=== PATIENT | female | born 1970 | race Caucasian/White ===

== ENCOUNTER 2017-05-21 12:43 | Emergency (ER) | payer MEDICARE, MEDICAID ==
[~2017-05-21] VITALS: Ht 149.8 cm; Wt 95.7 kg
[~2017-05-21 12:43] MED LIST: ALBUTEROL0.09 MG/A2 IH; AMOXICILLIN500 M2 PO; AMOXICILLIN500 MG PO; ANAPROX DS550 MG PO; AUGMENTIN 875-875 MG PO; BACTRIM DS 8001 TA1 PO; CIPRO500 MG PO; CIPROFLOXACIN500 MG PO; CORTISPORIN SUS10 ML OT; CYCLOBENZAPRINE10 MG PO; DIFLUCAN150 MG PO; DILANTIN PO; DILANTIN100 MG PO; DILANTIN50 MG PO; FLEXERIL10 MG PO; FLONASE 0.05% 121 EA NAS; HYDROCODONE BIT1 T11 PO; MEDROL DOSEPAK4 MG PO; MOTRIN800 MG PO; MULTIPLE VITAMI1 TAB PO; NAPROSYN500 MG PO; PREDNICOT20 MG PO; PREDNISONE20 M1 PO; PRILOSEC20 MG PO; PROVENTIL0.09 MG/AC IH; ROBITUSSIN DM 105 ML PO; TESSALON PERLE100 M1 PO; VICODIN 5/500 505 MG PO; VITAMINS FOR HA1 CAP PO; ZITHROMAX Z PA250 MG PO; ZYRTEC10 MG PO
[2017-05-21] MEDS ORDERED: VIBRAMYCIN100 MG PO (15:14)
== END 2017-05-21 15:38 | disposition home or self-care (01) ==
LOC: ED 12:43
DX: J40 Bronchitis, not specified as acute or chronic (principal)

== ENCOUNTER → 2017-05-25 | Emergency (ER) | payer MEDICARE, MEDICAID ==
[~2017-05-25] VITALS: Wt 95.7 kg
[~2017-05-25] MED LIST changes: +VIBRAMYCIN100 MG PO
[2017-05-25 21:58] LABS: BASO % 0.5 % (0.0-1.0); EOS # 0.1 10*3/uL (0.0-0.4); EOS % 1.1 % (1.0-4.0); HEMATOCRIT 40.2 % (37.0-47.0); HEMOGLOBIN 13.8 g/dl (12.0-16.0); LYMPH # 2.3 10*3/uL (1.3-4.4); LYMPH % 35.1 % (27.0-41.0); MEAN CELL VOLUME 87.4 fl (81.0-99.0); MEAN CORPUSCULAR HGB CONC 34.3 g/dl (33.0-37.0); MEAN PLATELET VOLUME 9.1 fl (9.6-12.3); MONO # 0.4 10*3/uL (0.1-1.0); MONO % 6.3 % (3.0-9.0); NEUT # 3.7 10*3/uL (2.3-7.9); NEUT % 56.2 % (47.0-73.0); PLATELET COUNT AUTOMATED 246 10*3/uL (130-400); RED CELL DISTRI WIDTH 12.8 % (0-14.5); WHITE BLOOD COUNT 6.6 10*3/uL (4.8-10.8)
[2017-05-25 22:14] LABS: ALBUMIN 3.8 gm/dl (3.1-4.5); ALKALINE PHOSPHATASE 81 U/L (45-117); BUN 16 mg/dl (7-24); CHLORIDE 104 mmol/L (98-107); CREATININE 0.73 mg/dL (0.55-1.02); POTASSIUM 3.9 mmol/L (3.5-5.1); SGOT/AST 16 IU/L (3-35); SGPT/ALT 27 U/L (12-78); SODIUM 139 mmol/L (136-145); TOTAL PROTEIN 7.4 gm/dL (6.4-8.2)
== END ==
LOC: ED 21:13
PROVIDERS: Nurse Practitioner Family
DX: G43.909 Migraine, unspecified, not intractable, without status migrainosus (principal); G40.909 Epilepsy, unspecified, not intractable, without status epilepticus; Z79.899 Other long term (current) drug therapy

== ENCOUNTER 2017-07-08 12:35 | Emergency (ER) | payer MEDICARE, MEDICAID ==
[~2017-07-08] VITALS: Ht 152.4 cm; Wt 97.1 kg
[2017-07-08] MEDS ORDERED: NAPROSYN500 MG PO (12:57)
== END 2017-07-08 14:43 | disposition home or self-care (01) ==
LOC: ED 12:35
DX: S50.02XA Contusion of left elbow, initial encounter (principal); S60.222A Contusion of left hand, initial encounter; S60.212A Contusion of left wrist, initial encounter; R03.0 Elevated blood-pressure reading, without diagnosis of hypertension; Z79.899 Other long term (current) drug therapy; W10.9XXA Fall (on) (from) unspecified stairs and steps, initial encounter; Y93.89 Activity, other specified; Y92.009 Unspecified place in unspecified non-institutional (private) residence as the place of occurrence of the external cause; Y99.8 Other external cause status

== ENCOUNTER 2017-10-04 10:23 | Emergency (ER) | payer MEDICARE, MEDICAID ==
[~2017-10-04] VITALS: Ht 149.8 cm; Wt 97.1 kg
[2017-10-04] MEDS ORDERED: PREDNISONE20 M1 PO (12:01)
[2017-10-04] MEDS ORDERED: ROBITUSSIN DM 105 ML PO (12:01)
[2017-10-04] MEDS ORDERED: AMOXICILLIN500 M2 PO (12:01)
== END 2017-10-04 12:14 | disposition home or self-care (01) ==
LOC: ED 10:23
DX: J20.9 Acute bronchitis, unspecified (principal); Z79.899 Other long term (current) drug therapy

== ENCOUNTER 2018-02-16 10:56 | Emergency (ER) | payer MEDICARE, MEDICAID ==
[~2018-02-16] VITALS: Ht 147.3 cm; Wt 100.7 kg
[2018-02-16] MEDS ORDERED: NAPROSYN500 MG PO (12:29)
[2018-02-16] MEDS ORDERED: CYCLOBENZAPRINE10 MG PO (12:29)
== END 2018-02-16 12:47 | disposition home or self-care (01) ==
LOC: ED 10:56
DX: S46.912A Strain of unspecified muscle, fascia and tendon at shoulder and upper arm level, left arm, initial encounter (principal); Z79.899 Other long term (current) drug therapy; X58.XXXA Exposure to other specified factors, initial encounter; Y93.89 Activity, other specified; Y92.89 Other specified places as the place of occurrence of the external cause; Y99.8 Other external cause status

== ENCOUNTER 2018-04-23 12:31 | Emergency (ER) | payer MEDICARE, MEDICAID ==
[~2018-04-23] VITALS: Ht 147.3 cm; Wt 94.8 kg
[2018-04-23] MEDS ORDERED: NAPROSYN500 MG PO (12:41)
== END 2018-04-23 13:57 | disposition home or self-care (01) ==
LOC: ED 12:31
DX: S93.622A Sprain of tarsometatarsal ligament of left foot, initial encounter (principal); R03.0 Elevated blood-pressure reading, without diagnosis of hypertension; X58.XXXA Exposure to other specified factors, initial encounter; Y93.89 Activity, other specified; Y92.89 Other specified places as the place of occurrence of the external cause; Y99.8 Other external cause status; Z79.899 Other long term (current) drug therapy

== ENCOUNTER → 2018-05-04 | Outpatient (CLI) | payer MEDICARE, MEDICAID ==
[~2018-05-04] MED LIST changes: +AVPAK AZITHROM250 M1 PO; +CLARITIN10 MG PO; +FLONASE ALLERG9.9 ML NAS; +PREDNISONE10 MG PO; +PROAIR HFA8.5 GM INH
== END | disposition home or self-care (01) ==
LOC: US 11:23
DX: R92.2 Inconclusive mammogram (principal)

== ENCOUNTER 2018-06-05 09:56 | Emergency (ER) | payer MEDICARE, MEDICAID ==
[~2018-06-05] VITALS: Ht 147.3 cm; Wt 94.8 kg
[~2018-06-05 09:56] MED LIST changes: -AVPAK AZITHROM250 M1 PO; -CLARITIN10 MG PO; -FLONASE ALLERG9.9 ML NAS; -PREDNISONE10 MG PO; -PROAIR HFA8.5 GM INH
[2018-06-05] MEDS ORDERED: PROAIR HFA8.5 GM INH (10:06)
[2018-06-05] MEDS ORDERED: PREDNISONE10 MG PO (10:06)
[2018-06-05] MEDS ORDERED: FLONASE ALLERG9.9 ML NAS (10:08)
[2018-06-05] MEDS ORDERED: CLARITIN10 MG PO (10:08)
[2018-06-05] MEDS ORDERED: AVPAK AZITHROM250 M1 PO (10:58)
== END 2018-06-05 11:24 | disposition home or self-care (01) ==
LOC: ED 09:56
DX: J20.9 Acute bronchitis, unspecified (principal); R03.0 Elevated blood-pressure reading, without diagnosis of hypertension; Z79.899 Other long term (current) drug therapy; Z79.2 Long term (current) use of antibiotics

== ENCOUNTER 2018-08-14 11:19 | Emergency (ER) | payer MEDICARE, MEDICAID ==
[~2018-08-14] VITALS: Wt 95.3 kg
[~2018-08-14 11:19] MED LIST changes: +AVPAK AZITHROM250 M1 PO; +CLARITIN10 MG PO; +FLONASE ALLERG9.9 ML NAS; +PREDNISONE10 MG PO; +PROAIR HFA8.5 GM INH
[2018-08-14] MEDS ORDERED: OMNICEF300 MG PO (11:30)
[2018-08-14] MEDS ORDERED: FLONASE ALLERG9.9 ML NAS (11:30)
[2018-08-14] MEDS ORDERED: CLARITIN10 MG PO (11:30)
[2018-08-14] MEDS ORDERED: PREDNISONE10 MG PO (11:30)
== END 2018-08-14 11:34 | disposition home or self-care (01) ==
LOC: ED 11:19
DX: H66.92 Otitis media, unspecified, left ear (principal); R03.0 Elevated blood-pressure reading, without diagnosis of hypertension; R09.81 Nasal congestion; J02.9 Acute pharyngitis, unspecified; Z79.899 Other long term (current) drug therapy

== ENCOUNTER 2018-08-24 10:50 | Emergency (ER) | payer MEDICARE, MEDICAID ==
[~2018-08-24] VITALS: Ht 147.3 cm; Wt 99.3 kg
[~2018-08-24 10:50] MED LIST changes: +OMNICEF300 MG PO
[2018-08-24] MEDS ORDERED: CIPRODEX 0.3%-7.5 ML OT (11:23)
== END 2018-08-24 11:26 | disposition home or self-care (01) ==
LOC: ED 10:50
DX: H60.92 Unspecified otitis externa, left ear (principal); Z79.2 Long term (current) use of antibiotics; Z79.899 Other long term (current) drug therapy

== ENCOUNTER 2018-11-09 08:55 | Emergency (ER) | payer MEDICARE, MEDICAID ==
[~2018-11-09] VITALS: Ht 177.8 cm; Wt 99.3 kg
[~2018-11-09 08:55] MED LIST changes: +CIPRODEX 0.3%-7.5 ML OT
[2018-11-09] MEDS ORDERED: PREDNISONE20 M1 PO (11:19)
== END 2018-11-09 11:21 | disposition home or self-care (01) ==
LOC: ED 08:55
DX: S46.911A Strain of unspecified muscle, fascia and tendon at shoulder and upper arm level, right arm, initial encounter (principal); Z79.899 Other long term (current) drug therapy; X58.XXXA Exposure to other specified factors, initial encounter; Y93.89 Activity, other specified; Y92.89 Other specified places as the place of occurrence of the external cause; Y99.8 Other external cause status

== ENCOUNTER 2019-02-08 14:12 | Emergency (ER) | payer MEDICARE, MEDICAID ==
[~2019-02-08] VITALS: Wt 101.2 kg
[2019-02-08] MEDS ORDERED: FLONASE ALLERG9.9 ML NAS (14:29)
[2019-02-08] MEDS ORDERED: ZYRTEC10 MG PO (14:29)
[2019-02-08] MEDS ORDERED: AUGMENTIN 875875 MG PO (14:29)
== END 2019-02-08 14:40 | disposition home or self-care (01) ==
LOC: ED 14:12
DX: J32.9 Chronic sinusitis, unspecified (principal); J02.9 Acute pharyngitis, unspecified; R05 Cough; Z79.899 Other long term (current) drug therapy

== ENCOUNTER → 2020-02-13 | Outpatient (CLI) | payer MEDICARE, MEDICAID ==
[~2020-02-13] MED LIST changes: +AUGMENTIN 875875 MG PO
[2020-02-13 11:35] LABS: BASO % 0.4 % (0.0-1.0); EOS % 0.6 % (1.0-4.0); HEMATOCRIT 39.6 % (37.0-47.0); LYMPH # 1.7 10*3/uL (1.3-4.4); LYMPH % 35.6 % (27.0-41.0); MEAN CELL VOLUME 88.4 fl (81.0-99.0); MEAN CORPUSCULAR HGB 29.5 pg (27.0-31.0); MEAN CORPUSCULAR HGB CONC 33.3 g/dl (33.0-37.0); MEAN PLATELET VOLUME 9.4 fl (9.6-12.3); MONO # 0.4 10*3/uL (0.1-1.0); MONO % 7.9 % (3.0-9.0); NEUT # 2.6 10*3/uL (2.3-7.9); NEUT % 55.3 % (47.0-73.0); PLATELET COUNT AUTOMATED 245 10*3/uL (130-400); RED BLOOD COUNT 4.48 10*6/uL (4.10-5.10); RED CELL DISTRI WIDTH 13.1 % (0-14.5); WHITE BLOOD COUNT 4.8 10*3/uL (4.8-10.8)
[2020-02-13 12:07] LABS: ALBUMIN 3.9 gm/dl (3.1-4.5); ALKALINE PHOSPHATASE 72 U/L (45-117); BILIRUBIN, DIRECT < 0.1 mg/dL (0.0-0.2); BUN 20 mg/dl (7-24); CHLORIDE 106 mmol/L (98-107); CREATININE 0.73 mg/dL (0.55-1.02); POTASSIUM 4.1 mmol/L (3.5-5.1); SGOT/AST 17 IU/L (3-35); SGPT/ALT 38 U/L (12-78); SODIUM 138 mmol/L (136-145); TOTAL PROTEIN 6.9 gm/dL (6.4-8.2)
== END | disposition home or self-care (01) ==
LOC: LAB 11:18
PROVIDERS: Internal Medicine
DX: R56.9 Unspecified convulsions (principal)

== ENCOUNTER 2020-07-06 12:32 | Emergency (ER) | payer MEDICARE, MEDICAID ==
[~2020-07-06] VITALS: Ht 152.4 cm; Wt 101.2 kg
== END 2020-07-06 14:13 | disposition home or self-care (01) ==
LOC: ED 12:32
DX: S66.912A Strain of unspecified muscle, fascia and tendon at wrist and hand level, left hand, initial encounter (principal); Z79.899 Other long term (current) drug therapy; X58.XXXA Exposure to other specified factors, initial encounter; Y93.89 Activity, other specified; Y92.89 Other specified places as the place of occurrence of the external cause; Y99.8 Other external cause status

== ENCOUNTER 2020-10-19 20:55 | Emergency (ER) | payer MEDICARE, MEDICAID ==
[~2020-10-19] VITALS: Ht 152.4 cm; Wt 103.9 kg
[2020-10-19 21:45] LABS: BASO % 0.5 % (0.0-1.0); EOS % 0.6 % (1.0-4.0); HEMATOCRIT 39.4 % (37.0-47.0); LYMPH # 1.8 10*3/uL (1.3-4.4); LYMPH % 27.6 % (27.0-41.0); MEAN CELL VOLUME 87.6 fl (81.0-99.0); MEAN CORPUSCULAR HGB 29.6 pg (27.0-31.0); MEAN CORPUSCULAR HGB CONC 33.8 g/dl (33.0-37.0); MEAN PLATELET VOLUME 9.6 fl (9.6-12.3); MONO # 0.5 10*3/uL (0.1-1.0); MONO % 7.7 % (3.0-9.0); NEUT % 63.4 % (47.0-73.0); PLATELET COUNT AUTOMATED 265 10*3/uL (130-400); RED CELL DISTRI WIDTH 13.2 % (0-14.5); WHITE BLOOD COUNT 6.4 10*3/uL (4.8-10.8)
[2020-10-19 22:02] LABS: ALBUMIN 3.5 gm/dl (3.1-4.5); ALKALINE PHOSPHATASE 75 U/L (45-117); BUN 22 mg/dl (7-24); CHLORIDE 108 mmol/L (98-107); CREATININE 0.72 mg/dL (0.55-1.02); POTASSIUM 3.8 mmol/L (3.5-5.1); SGOT/AST 9 IU/L (3-35); SGPT/ALT 30 U/L (12-78); SODIUM 141 mmol/L (136-145)
== END 2020-10-19 23:02 | disposition home or self-care (01) ==
LOC: ED 20:55
PROVIDERS: Emergency Medicine
DX: R19.7 Diarrhea, unspecified (principal); R06.89 Other abnormalities of breathing; G43.909 Migraine, unspecified, not intractable, without status migrainosus; Z20.822 Contact with and (suspected) exposure to COVID-19; Z79.899 Other long term (current) drug therapy; Z86.73 Personal history of transient ischemic attack (TIA), and cerebral infarction without residual deficits; Z87.891 Personal history of nicotine dependence

== ENCOUNTER 2020-10-26 17:41 | Emergency (ER) | payer MEDICARE, MEDICAID ==
[~2020-10-26] VITALS: Ht 152.4 cm; Wt 100.2 kg
== END 2020-10-26 19:09 | disposition home or self-care (01) ==
LOC: ED 17:41
DX: S92.351A Displaced fracture of fifth metatarsal bone, right foot, initial encounter for closed fracture (principal); G40.909 Epilepsy, unspecified, not intractable, without status epilepticus; G43.909 Migraine, unspecified, not intractable, without status migrainosus; Z86.73 Personal history of transient ischemic attack (TIA), and cerebral infarction without residual deficits; Z79.899 Other long term (current) drug therapy; Z87.891 Personal history of nicotine dependence; W18.09XA Striking against other object with subsequent fall, initial encounter; Y93.89 Activity, other specified; Y92.89 Other specified places as the place of occurrence of the external cause; Y99.8 Other external cause status

== ENCOUNTER 2020-12-31 18:05 | Inpatient (IN) | payer MEDICARE, MEDICAID ==
[~2020-12-31] VITALS: Ht 152.4 cm; Wt 99.3 kg
[2020-12-31 18:17] VITALS: BP 155/62
[2020-12-31 18:37] LABS: BASO % 0.2 % (0.0-1.0); EOS % 0.8 % (1.0-4.0); HEMATOCRIT 40.6 % (37.0-47.0); LYMPH # 1.4 10*3/uL (1.3-4.4); LYMPH % 29.1 % (27.0-41.0); MEAN CELL VOLUME 89.4 fl (81.0-99.0); MEAN CORPUSCULAR HGB 30.2 pg (27.0-31.0); MEAN CORPUSCULAR HGB CONC 33.7 g/dl (33.0-37.0); MEAN PLATELET VOLUME 9.3 fl (9.6-12.3); MONO # 0.3 10*3/uL (0.1-1.0); MONO % 6.3 % (3.0-9.0); NEUT % 63.4 % (47.0-73.0); PLATELET COUNT AUTOMATED 219 10*3/uL (130-400); RED BLOOD COUNT 4.54 10*6/uL (4.10-5.10); WHITE BLOOD COUNT 4.8 10*3/uL (4.8-10.8)
[2020-12-31 18:45] VITALS: BP 160/74
[2020-12-31 18:51] LABS: ACT PARTIAL THROMBO TIME 28.2 SECONDS (20.0-32.1)
[2020-12-31 18:57] LABS: ALBUMIN 3.4 gm/dl (3.1-4.5); ALKALINE PHOSPHATASE 91 U/L (45-117); BUN 13 mg/dl (7-24); CHLORIDE 112 mmol/L (98-107); CREATININE 0.67 mg/dL (0.55-1.02); POTASSIUM 3.6 mmol/L (3.5-5.1); SGOT/AST 14 IU/L (3-35); SGPT/ALT 59 U/L (12-78); SODIUM 142 mmol/L (136-145); TOTAL PROTEIN 6.8 gm/dL (6.4-8.2)
[2020-12-31 19:00] LABS: TROPONIN I < 0.015 ng/ml (<0.045)
[2020-12-31 19:33] VITALS: BP 163/74
[2020-12-31 19:55] VITALS: BP 159/71
[2020-12-31 20:35] VITALS: BP 180/92
[2020-12-31] MEDS ORDERED: ALLERGY RELIEF10 M2 PO (20:48)
[2020-12-31] MEDS ORDERED: LOSARTAN POTASS25 M1 PO (20:48)
[2020-12-31 22:00] VITALS: BP 158/88
[2021-01-01] VITALS: BP 152/74
[2021-01-01 05:56] LABS: BASO % 0.4 % (0.0-1.0); EOS # 0.1 10*3/uL (0.0-0.4); EOS % 1.5 % (1.0-4.0); HEMATOCRIT 39.6 % (37.0-47.0); LYMPH # 1.9 10*3/uL (1.3-4.4); LYMPH % 41.4 % (27.0-41.0); MEAN CELL VOLUME 90.4 fl (81.0-99.0); MEAN CORPUSCULAR HGB 30.1 pg (27.0-31.0); MEAN CORPUSCULAR HGB CONC 33.3 g/dl (33.0-37.0); MEAN PLATELET VOLUME 9.2 fl (9.6-12.3); MONO # 0.3 10*3/uL (0.1-1.0); MONO % 7.3 % (3.0-9.0); NEUT # 2.2 10*3/uL (2.3-7.9); NEUT % 49.2 % (47.0-73.0); PLATELET COUNT AUTOMATED 202 10*3/uL (130-400); RED BLOOD COUNT 4.38 10*6/uL (4.10-5.10); RED CELL DISTRI WIDTH 13.1 % (0-14.5); WHITE BLOOD COUNT 4.5 10*3/uL (4.8-10.8)
[2021-01-01 06:22] LABS: ACT PARTIAL THROMBO TIME 27.7 SECONDS (20.0-32.1)
[2021-01-01 06:28] LABS: BUN 14 mg/dl (7-24); CHLORIDE 112 mmol/L (98-107); CHOLESTEROL 193 mg/dL (<200); CREATININE 0.72 mg/dL (0.55-1.02); POTASSIUM 3.6 mmol/L (3.5-5.1); SODIUM 144 mmol/L (136-145); TRIGLYCERIDES 204 mg/dl (<150)
[2021-01-01 06:29] LABS: LDL CHOLESTEROL 105 mg/dL (9-159)
[2021-01-01 06:41] LABS: VITAMIN D, 25-HYDROXY 35.2 ng/mL (30-100)
[2021-01-01 12:00] VITALS: BP 123/58
== END 2021-01-01 17:26 | disposition home or self-care (01) | DRG 392 ==
LOC: ED 18:05 → EDHOLD 19:04 → 5E 19:04
PROVIDERS: Emergency Medicine; Hospitalist; ADMIT Internal Medicine; ATTEND Internal Medicine
DX: K21.9 Gastro-esophageal reflux disease without esophagitis (principal); I16.1 Hypertensive emergency; Z68.41 Body mass index [BMI] 40.0-44.9, adult; R73.9 Hyperglycemia, unspecified; G40.909 Epilepsy, unspecified, not intractable, without status epilepticus; E83.41 Hypermagnesemia; E78.1 Pure hyperglyceridemia; R00.2 Palpitations; E66.01 Morbid (severe) obesity due to excess calories; I11.9 Hypertensive heart disease without heart failure; Z87.891 Personal history of nicotine dependence; Z82.5 Family history of asthma and other chronic lower respiratory diseases; Z82.49 Family history of ischemic heart disease and other diseases of the circulatory system; Z79.899 Other long term (current) drug therapy

== ENCOUNTER 2021-07-05 11:40 | Emergency (ER) | payer MEDICARE, MEDICAID ==
[~2021-07-05] VITALS: Ht 147.3 cm; Wt 101.2 kg
[~2021-07-05 11:40] MED LIST changes: +ALLERGY RELIEF10 M2 PO; +LOSARTAN POTASS25 M1 PO
[2021-07-05] MEDS ORDERED: MULTIVITAMINS1 EAC1 PO (11:59)
[2021-07-05 12:55] LABS: BASO % 0.3 % (0.0-1.0); EOS # 0.1 10*3/uL (0.0-0.4); EOS % 0.8 % (1.0-4.0); HEMATOCRIT 38.3 % (37.0-47.0); LYMPH # 1.5 10*3/uL (1.3-4.4); LYMPH % 25.4 % (27.0-41.0); MEAN CELL VOLUME 89.5 fl (81.0-99.0); MEAN CORPUSCULAR HGB 29.4 pg (27.0-31.0); MEAN CORPUSCULAR HGB CONC 32.9 g/dl (33.0-37.0); MEAN PLATELET VOLUME 9.4 fl (9.6-12.3); MONO # 0.4 10*3/uL (0.1-1.0); MONO % 7.2 % (3.0-9.0); NEUT # 3.9 10*3/uL (2.3-7.9); PLATELET COUNT AUTOMATED 230 10*3/uL (130-400); RED BLOOD COUNT 4.28 10*6/uL (4.10-5.10); RED CELL DISTRI WIDTH 13.6 % (0-14.5); WHITE BLOOD COUNT 5.9 10*3/uL (4.8-10.8)
[2021-07-05 13:16] LABS: ALBUMIN 3.5 gm/dl (3.1-4.5); ALKALINE PHOSPHATASE 80 U/L (45-117); BUN 18 mg/dl (7-24); CHLORIDE 108 mmol/L (98-107); CREATININE 0.76 mg/dL (0.55-1.02); POTASSIUM 3.6 mmol/L (3.5-5.1); SGOT/AST 17 IU/L (3-35); SGPT/ALT 34 U/L (12-78); SODIUM 141 mmol/L (136-145); TOTAL PROTEIN 6.9 gm/dL (6.4-8.2)
[2021-07-05 13:21] LABS: TROPONIN I < 0.015 ng/ml (<0.045)
[2021-07-05] MEDS ORDERED: FLONASE ALLERG9.9 ML NAS (14:18)
[2021-07-05] MEDS ORDERED: BENZONATATE100 M1 PO (14:18)
== END 2021-07-05 14:22 | disposition home or self-care (01) ==
LOC: ED 11:40
PROVIDERS: Emergency Medicine
DX: J32.9 Chronic sinusitis, unspecified (principal); I10 Essential (primary) hypertension; Z79.899 Other long term (current) drug therapy; Z87.891 Personal history of nicotine dependence

== ENCOUNTER 2021-11-17 10:26 | Emergency (ER) | payer MEDICARE, MEDICAID ==
[~2021-11-17] VITALS: Ht 152.4 cm; Wt 103.9 kg
[~2021-11-17 10:26] MED LIST changes: +BENZONATATE100 M1 PO; +MULTIVITAMINS1 EAC1 PO
[2021-11-17] MEDS ORDERED: AUGMENTIN 875-875 MG PO (11:19)
[2021-11-17] MEDS ORDERED: PREDNISONE20 M1 PO (11:19)
== END 2021-11-17 11:38 | disposition home or self-care (01) ==
LOC: ED 10:26
DX: S61.254A Open bite of right ring finger without damage to nail, initial encounter (principal); R05.9 Cough, unspecified; Z79.899 Other long term (current) drug therapy; Z87.891 Personal history of nicotine dependence; W54.0XXA Bitten by dog, initial encounter; Y93.89 Activity, other specified; Y92.89 Other specified places as the place of occurrence of the external cause; Y99.8 Other external cause status

== ENCOUNTER 2022-09-28 15:59 | Emergency (ER) | payer MEDICARE, MEDICAID ==
[~2022-09-28] VITALS: Ht 152.4 cm; Wt 103.9 kg
[2022-09-28 16:50] LABS: BILIRUBIN Negative (Negative); BLOOD Negative (Negative); CLARITY Clear (Clear); COLOR Yellow (Yellow); GLUCOSE Negative (Negative); KETONE Negative (Negative); LEUKO ESTERASE Negative (Negative); NITRITE Negative (Negative); PH 5.5 (4.5-8.0); UROBILINOGEN 0.2 E.U./dl (0.0-1.0)
[2022-09-28 17:27] LABS: BACTERIA TRACE; EPITHELIAL CELLS 21-30; WBC 0-2 wbc/hpf (0-5)
[2022-09-28] MEDS ORDERED: CEFDINIR300 MG PO (17:33)
== END 2022-09-28 17:49 | disposition home or self-care (01) ==
LOC: ED 15:59
PROVIDERS: Physician Assistant
DX: S66.912A Strain of unspecified muscle, fascia and tendon at wrist and hand level, left hand, initial encounter (principal); H66.93 Otitis media, unspecified, bilateral; R35.0 Frequency of micturition; Z98.890 Other specified postprocedural states; Z87.891 Personal history of nicotine dependence; W19.XXXA Unspecified fall, initial encounter; Y93.89 Activity, other specified; Y92.89 Other specified places as the place of occurrence of the external cause; Y99.8 Other external cause status

== ENCOUNTER 2022-10-31 15:31 | Emergency (ER) | payer MEDICARE, MEDICAID ==
[~2022-10-31] VITALS: Ht 152.4 cm; Wt 106.6 kg
[~2022-10-31 15:31] MED LIST changes: +CEFDINIR300 MG PO
[2022-10-31 16:21] LABS: BASO % 0.4 % (0.0-1.0); EOS # 0.1 10*3/uL (0.0-0.4); EOS % 2.1 % (1.0-4.0); HEMATOCRIT 40.9 % (37.0-47.0); LYMPH # 1.4 10*3/uL (1.3-4.4); LYMPH % 28.6 % (27.0-41.0); MEAN CELL VOLUME 88.7 fl (81.0-99.0); MEAN CORPUSCULAR HGB 29.1 pg (27.0-31.0); MEAN CORPUSCULAR HGB CONC 32.8 g/dl (33.0-37.0); MEAN PLATELET VOLUME 9.3 fl (9.6-12.3); MONO # 0.4 10*3/uL (0.1-1.0); MONO % 7.4 % (3.0-9.0); NEUT % 61.1 % (47.0-73.0); PLATELET COUNT AUTOMATED 227 10*3/uL (130-400); RED BLOOD COUNT 4.61 10*6/uL (4.10-5.10); RED CELL DISTRI WIDTH 13.2 % (0-14.5); WHITE BLOOD COUNT 4.9 10*3/uL (4.8-10.8)
[2022-10-31 16:36] LABS: ALKALINE PHOSPHATASE 81 U/L (46-116); BUN 15 mg/dl (9-23); CHLORIDE 108 mmol/L (98-107); LIPASE 37 U/L (12-53); SGPT/ALT 46 U/L (10-49); TOTAL PROTEIN 6.6 gm/dL (6.0-8.0)
[2022-10-31 16:39] LABS: ACT PARTIAL THROMBO TIME 28.9 SECONDS (20.0-32.1)
== END 2022-11-01 00:02 | disposition home or self-care (01) ==
LOC: ED 15:31
PROVIDERS: Emergency Medicine
DX: R00.2 Palpitations (principal); I10 Essential (primary) hypertension; G43.909 Migraine, unspecified, not intractable, without status migrainosus; Z79.899 Other long term (current) drug therapy; Z87.891 Personal history of nicotine dependence

== ENCOUNTER 2022-12-10 09:01 | Emergency (ER) | payer MEDICARE, MEDICAID ==
[~2022-12-10] VITALS: Wt 109.8 kg
[2022-12-10] MEDS ORDERED: ZITHROMAX250 MG PO (09:23)
== END 2022-12-10 09:35 | disposition home or self-care (01) ==
LOC: ED 09:01
DX: J20.9 Acute bronchitis, unspecified (principal); I10 Essential (primary) hypertension; G43.909 Migraine, unspecified, not intractable, without status migrainosus; Z98.890 Other specified postprocedural states; Z87.891 Personal history of nicotine dependence

== ENCOUNTER 2023-03-10 10:46 | Emergency (ER) | payer MEDICARE, MEDICAID ==
[~2023-03-10] VITALS: Wt 108.0 kg
[~2023-03-10 10:46] MED LIST changes: +ZITHROMAX250 MG PO
[2023-03-10] MEDS ORDERED: FEXOFENADINE H180 M1 PO (11:18)
[2023-03-10 11:43] LABS: BASO % 0.4 % (0.0-1.0); EOS # 0.1 10*3/uL (0.0-0.4); EOS % 2.1 % (1.0-4.0); HEMATOCRIT 40.5 % (37.0-47.0); LYMPH # 1.4 10*3/uL (1.3-4.4); MEAN CELL VOLUME 87.7 fl (81.0-99.0); MEAN CORPUSCULAR HGB 29.4 pg (27.0-31.0); MEAN CORPUSCULAR HGB CONC 33.6 g/dl (33.0-37.0); MEAN PLATELET VOLUME 9.6 fl (9.6-12.3); MONO # 0.4 10*3/uL (0.1-1.0); MONO % 6.8 % (3.0-9.0); NEUT # 3.7 10*3/uL (2.3-7.9); NEUT % 65.5 % (47.0-73.0); PLATELET COUNT AUTOMATED 213 10*3/uL (130-400); RED BLOOD COUNT 4.62 10*6/uL (4.10-5.10); RED CELL DISTRI WIDTH 13.3 % (0-14.5); WHITE BLOOD COUNT 5.7 10*3/uL (4.8-10.8)
[2023-03-10 11:56] LABS: ACT PARTIAL THROMBO TIME 30.8 SECONDS (20.0-32.1)
[2023-03-10 12:06] LABS: ALKALINE PHOSPHATASE 79 U/L (46-116); BUN 13 mg/dl (9-23); CHLORIDE 105 mmol/L (98-107); LIPASE 36 U/L (12-53); SGPT/ALT 20 U/L (10-49); TOTAL PROTEIN 6.6 gm/dL (6.0-8.0)
== END 2023-03-10 14:23 | disposition home or self-care (01) ==
LOC: ED 10:46
PROVIDERS: Emergency Medicine
DX: R13.10 Dysphagia, unspecified (principal); J04.0 Acute laryngitis; I10 Essential (primary) hypertension; G43.909 Migraine, unspecified, not intractable, without status migrainosus; Z98.890 Other specified postprocedural states; Z87.891 Personal history of nicotine dependence

== ENCOUNTER → 2023-04-13 | Outpatient (CLI) | payer MEDICARE, MEDICAID ==
[~2023-04-13] MED LIST changes: +FEXOFENADINE H180 M1 PO
[2023-04-13 12:38] LABS: BASO % 0.6 % (0.0-1.0); EOS # 0.2 10*3/uL (0.0-0.4); EOS % 3.4 % (1.0-4.0); HEMATOCRIT 42.7 % (37.0-47.0); LYMPH # 1.6 10*3/uL (1.3-4.4); LYMPH % 31.5 % (27.0-41.0); MEAN CELL VOLUME 89.3 fl (81.0-99.0); MEAN CORPUSCULAR HGB 29.3 pg (27.0-31.0); MEAN CORPUSCULAR HGB CONC 32.8 g/dl (33.0-37.0); MEAN PLATELET VOLUME 9.8 fl (9.6-12.3); MONO # 0.3 10*3/uL (0.1-1.0); MONO % 6.4 % (3.0-9.0); NEUT # 2.9 10*3/uL (2.3-7.9); NEUT % 57.7 % (47.0-73.0); PLATELET COUNT AUTOMATED 224 10*3/uL (130-400); RED BLOOD COUNT 4.78 10*6/uL (4.10-5.10); RED CELL DISTRI WIDTH 13.3 % (0-14.5)
[2023-04-13 13:06] LABS: ALKALINE PHOSPHATASE 76 U/L (46-116); BUN 23 mg/dl (9-23); CHLORIDE 107 mmol/L (98-107); SGPT/ALT 26 U/L (10-49)
== END | disposition home or self-care (01) ==
LOC: LAB 12:12
PROVIDERS: ATTEND Psychiatry & Neurology Neurology
DX: H53.9 Unspecified visual disturbance (principal); R51.9 Headache, unspecified

== ENCOUNTER 2023-07-02 13:11 | Emergency (ER) | payer MEDICARE, MEDICAID ==
[~2023-07-02] VITALS: Ht 152.4 cm; Wt 108.9 kg
[2023-07-02 14:20] LABS: BILIRUBIN Negative (Negative); BLOOD Negative (Negative); CLARITY Clear (Clear); COLOR Yellow (Yellow); GLUCOSE Negative (Negative); KETONE Negative (Negative); LEUKO ESTERASE Negative (Negative); NITRITE Negative (Negative); SPECIFIC GRAVITY 1.025 (1.001-1.030)
[2023-07-02 14:34] LABS: BACTERIA TRACE
[2023-07-02 14:49] LABS: BASO % 0.4 % (0.0-1.0); EOS # 0.1 10*3/uL (0.0-0.4); EOS % 2.6 % (1.0-4.0); HEMATOCRIT 40.5 % (37.0-47.0); LYMPH # 1.6 10*3/uL (1.3-4.4); LYMPH % 35.7 % (27.0-41.0); MEAN CELL VOLUME 88.8 fl (81.0-99.0); MEAN CORPUSCULAR HGB 29.2 pg (27.0-31.0); MEAN CORPUSCULAR HGB CONC 32.8 g/dl (33.0-37.0); MEAN PLATELET VOLUME 9.5 fl (9.6-12.3); MONO # 0.3 10*3/uL (0.1-1.0); MONO % 7.3 % (3.0-9.0); NEUT # 2.4 10*3/uL (2.3-7.9); NEUT % 53.8 % (47.0-73.0); PLATELET COUNT AUTOMATED 219 10*3/uL (130-400); RED BLOOD COUNT 4.56 10*6/uL (4.10-5.10); RED CELL DISTRI WIDTH 13.7 % (0-14.5); WHITE BLOOD COUNT 4.5 10*3/uL (4.8-10.8)
[2023-07-02 15:27] LABS: ALKALINE PHOSPHATASE 81 U/L (46-116); BUN 16 mg/dl (9-23); CHLORIDE 109 mmol/L (98-107); LIPASE 43 U/L (12-53); POTASSIUM 3.8 mmol/L (3.4-5.1); SGPT/ALT 22 U/L (5-49); TOTAL PROTEIN 6.6 gm/dL (6.0-8.0)
[2023-07-02] MEDS ORDERED: AMOX-CLAV 875-1 EACH PO (16:19)
[2023-07-02] MEDS ORDERED: ONDANSETRON4 MG SL (16:19)
== END 2023-07-02 16:27 | disposition home or self-care (01) ==
LOC: ED 13:11
PROVIDERS: Nurse Practitioner Family
DX: R10.12 Left upper quadrant pain (principal); R11.0 Nausea; H66.91 Otitis media, unspecified, right ear; R19.7 Diarrhea, unspecified; I10 Essential (primary) hypertension; R73.9 Hyperglycemia, unspecified; G43.909 Migraine, unspecified, not intractable, without status migrainosus; E78.1 Pure hyperglyceridemia; Z98.890 Other specified postprocedural states; Z87.891 Personal history of nicotine dependence

== ENCOUNTER 2023-07-17 13:44 | Emergency (ER) | payer MEDICARE, MEDICAID ==
[~2023-07-17] VITALS: Ht 152.4 cm; Wt 110.7 kg
[~2023-07-17 13:44] MED LIST changes: +AMOX-CLAV 875-1 EACH PO; +ONDANSETRON4 MG SL
== END 2023-07-17 16:35 | disposition home or self-care (01) ==
LOC: ED 13:44
DX: S80.02XA Contusion of left knee, initial encounter (principal); S69.91XA Unspecified injury of right wrist, hand and finger(s), initial encounter; E87.8 Other disorders of electrolyte and fluid balance, not elsewhere classified; R73.9 Hyperglycemia, unspecified; E83.41 Hypermagnesemia; E78.1 Pure hyperglyceridemia; I10 Essential (primary) hypertension; G43.909 Migraine, unspecified, not intractable, without status migrainosus; Z98.890 Other specified postprocedural states; Z87.891 Personal history of nicotine dependence; W54.1XXA Struck by dog, initial encounter; Y93.89 Activity, other specified; Y92.89 Other specified places as the place of occurrence of the external cause; Y99.8 Other external cause status

== ENCOUNTER 2023-07-21 19:55 | Emergency (ER) | payer MEDICARE, MEDICAID ==
[2023-07-21] MEDS ORDERED: LOSARTAN POTASS50 M1 PO (19:58)
[2023-07-21 20:29] LABS: BASO % 0.3 % (0.0-1.0); EOS # 0.1 10*3/uL (0.0-0.4); EOS % 1.1 % (1.0-4.0); HEMATOCRIT 40.2 % (37.0-47.0); LYMPH # 1.3 10*3/uL (1.3-4.4); LYMPH % 20.4 % (27.0-41.0); MEAN CELL VOLUME 87.2 fl (81.0-99.0); MEAN CORPUSCULAR HGB 29.5 pg (27.0-31.0); MEAN CORPUSCULAR HGB CONC 33.8 g/dl (33.0-37.0); MEAN PLATELET VOLUME 9.3 fl (9.6-12.3); MONO # 0.4 10*3/uL (0.1-1.0); MONO % 5.7 % (3.0-9.0); NEUT # 4.5 10*3/uL (2.3-7.9); PLATELET COUNT AUTOMATED 221 10*3/uL (130-400); RED BLOOD COUNT 4.61 10*6/uL (4.10-5.10); RED CELL DISTRI WIDTH 13.3 % (0-14.5); WHITE BLOOD COUNT 6.2 10*3/uL (4.8-10.8)
[2023-07-21 20:39] LABS: ACT PARTIAL THROMBO TIME 23.4 SECONDS (20.0-32.1)
[2023-07-21 20:49] LABS: ALKALINE PHOSPHATASE 78 U/L (46-116); BUN 15 mg/dl (9-23); CHLORIDE 107 mmol/L (98-107); LIPASE 42 U/L (12-53); POTASSIUM 3.7 mmol/L (3.4-5.1); SGPT/ALT 32 U/L (5-49); TOTAL PROTEIN 6.6 gm/dL (6.0-8.0)
[2023-07-21 22:15] LABS: BILIRUBIN Negative (Negative); BLOOD Negative (Negative); CLARITY Clear (Clear); COLOR Yellow (Yellow); GLUCOSE Negative (Negative); KETONE Negative (Negative); LEUKO ESTERASE Negative (Negative); NITRITE Negative (Negative); SPECIFIC GRAVITY >= 1.030 (1.001-1.030); UROBILINOGEN 0.2 E.U./dl (0.0-1.0)
[2023-07-21 22:39] LABS: EPITHELIAL CELLS 21-30
[2023-07-21] MEDS ORDERED: ONDANSETRON4 MG SL (22:52)
== END 2023-07-21 23:02 | disposition home or self-care (01) ==
LOC: ED 19:55
PROVIDERS: Internal Medicine
DX: K52.9 Noninfective gastroenteritis and colitis, unspecified (principal); R11.2 Nausea with vomiting, unspecified; Z79.899 Other long term (current) drug therapy; Z79.2 Long term (current) use of antibiotics; Z98.890 Other specified postprocedural states; Z87.891 Personal history of nicotine dependence

== ENCOUNTER 2023-12-13 12:37 | Emergency (ER) | payer MEDICARE, MEDICAID ==
[~2023-12-13] VITALS: Ht 172.7 cm; Wt 97.5 kg
[~2023-12-13 12:37] MED LIST changes: +LOSARTAN POTASS50 M1 PO
== END 2023-12-13 13:47 | disposition home or self-care (01) ==
LOC: ED 12:37
DX: S63.501A Unspecified sprain of right wrist, initial encounter (principal); I10 Essential (primary) hypertension; E78.00 Pure hypercholesterolemia, unspecified; G43.909 Migraine, unspecified, not intractable, without status migrainosus; E73.9 Lactose intolerance, unspecified; E83.41 Hypermagnesemia; Z98.890 Other specified postprocedural states; Z87.891 Personal history of nicotine dependence; W01.198A Fall on same level from slipping, tripping and stumbling with subsequent striking against other object, initial encounter; Y93.89 Activity, other specified; Y92.89 Other specified places as the place of occurrence of the external cause; Y99.8 Other external cause status

== ENCOUNTER 2024-01-25 20:31 | Emergency (ER) | payer MEDICARE, MEDICAID ==
[~2024-01-25] VITALS: Ht 152.4 cm; Wt 101.6 kg
[2024-01-25] MEDS ORDERED: IBUPROFEN 800 MG TAB PO ONE (22:20)
[2024-01-26] MEDS ORDERED: NAPROXEN250 MG PO (00:26)
== END 2024-01-26 00:35 | disposition home or self-care (01) ==
LOC: ED 20:31
DX: M79.642 Pain in left hand (principal); I10 Essential (primary) hypertension; G43.909 Migraine, unspecified, not intractable, without status migrainosus; R60.0 Localized edema; Z98.890 Other specified postprocedural states; Z87.891 Personal history of nicotine dependence

== ENCOUNTER 2024-08-24 13:39 | Emergency (ER) | payer OTHER, MEDICAID ==
[~2024-08-24] VITALS: Ht 152.4 cm; Wt 102.1 kg
[~2024-08-24 13:39] MED LIST changes: +NAPROXEN250 MG PO
[2024-08-24] MEDS ORDERED: IBUPROFEN 800 MG TAB PO ONE (13:45)
[2024-08-24] MEDS ORDERED: NAPROSYN500 MG PO (13:54)
== END 2024-08-24 15:01 | disposition home or self-care (01) ==
LOC: ED 13:39
DX: S63.591A Other specified sprain of right wrist, initial encounter (principal); S83.91XA Sprain of unspecified site of right knee, initial encounter; S41.101A Unspecified open wound of right upper arm, initial encounter; W00.9XXA Unspecified fall due to ice and snow, initial encounter; Y93.89 Activity, other specified; Y92.89 Other specified places as the place of occurrence of the external cause; Y99.8 Other external cause status

== ENCOUNTER 2025-06-12 13:14 | Emergency (ER) | payer OTHER, MEDICAID ==
[~2025-06-12] VITALS: Ht 152.4 cm; Wt 101.6 kg
[2025-06-12] MEDS ORDERED: Ciprofloxacin Hydrochloride 500 MG TAB PO ONE (14:00)
[2025-06-12] MEDS ORDERED: Tdap Vaccine 0.5 ML SYR (Adult Vaccine) IM ONE (14:00)
[2025-06-12] MEDS ORDERED: CIPRO500 MG PO (14:06)
== END 2025-06-12 14:20 | disposition home or self-care (01) ==
LOC: ED 13:14
DX: S90.455A Superficial foreign body, left lesser toe(s), initial encounter (principal); H92.01 Otalgia, right ear; I10 Essential (primary) hypertension; G43.909 Migraine, unspecified, not intractable, without status migrainosus; Z87.891 Personal history of nicotine dependence; Z98.890 Other specified postprocedural states; W45.0XXA Nail entering through skin, initial encounter; Y93.89 Activity, other specified; Y92.89 Other specified places as the place of occurrence of the external cause; Y99.8 Other external cause status

== ENCOUNTER 2025-07-01 13:21 | Emergency (ER) | payer OTHER, MEDICAID ==
[~2025-07-01] VITALS: Ht 152.4 cm; Wt 100.7 kg
== END 2025-07-01 15:30 | disposition home or self-care (01) ==
LOC: ED 13:21
DX: S90.32XA Contusion of left foot, initial encounter (principal); W11.XXXA Fall on and from ladder, initial encounter; Y93.89 Activity, other specified; Y92.89 Other specified places as the place of occurrence of the external cause; Y99.8 Other external cause status